=== PATIENT | female | born 1985 | race Caucasian/White ===

== ENCOUNTER 2016-05-14 19:43 | Emergency (ER) | payer MEDICAID, OTHER ==
[~2016-05-14] VITALS: Ht 154.9 cm; Wt 79.5 kg
[2016-05-14] MEDS ORDERED: LIDOCAINE HCL/PF 1% 2 ML VIAL IM ONE (20:15)
[2016-05-14] MEDS ORDERED: DEXAMETHASONE SOD PHOS 4 MG/ML VIAL IVP ONE (20:15)
[2016-05-14] MEDS ORDERED: CefTRIAXone SODIUM 1 GM/VIAL IM ONE (20:15)
[2016-05-14] MEDS ORDERED: HYDROCODONE/ACETAMINOPHEN 5-325 MG TABLET PO ONE (20:15)
[2016-05-14] MEDS ORDERED: DEXAMETHASONE SOD PHOS 4 MG/ML VIAL IM ONE (20:45)
[2016-05-14 22:02] VITALS: BP 139/84
== END 2016-05-14 22:03 | disposition home or self-care (01) ==
LOC: EMS 19:45
DX: T78.49XA Other allergy, initial encounter (principal); L03.113 Cellulitis of right upper limb; Z87.442 Personal history of urinary calculi; X58.XXXA Exposure to other specified factors, initial encounter; Y93.89 Activity, other specified; Y99.8 Other external cause status; Y92.89 Other specified places as the place of occurrence of the external cause
CPT/HCPCS: 96372; 99284; J0696; J1100; J3490

== ENCOUNTER 2016-06-16 19:25 | Emergency (ER) | payer OTHER ==
[~2016-06-16] VITALS: Ht 154.9 cm; Wt 73.6 kg
[2016-06-16] MEDS ORDERED: PROPARACAINE HCL 0.5% 15 ML OPHTHALMIC SOLUTION OU ONE (22:30)
[2016-06-16 23:03] VITALS: BP 128/86
[2016-06-16] MEDS ORDERED: PredniSONE 20 MG TABLET PO ONE (23:15)
[2016-06-16] MEDS ORDERED: DiphenhydrAMINE HCL 25 MG CAPSULE PO ONE (23:15)
== END 2016-06-16 23:28 | disposition home or self-care (01) ==
LOC: EMS 19:27
DX: L50.9 Urticaria, unspecified (principal)
CPT/HCPCS: 99284; J7512

== ENCOUNTER 2016-11-17 14:53 | Emergency (ER) | payer OTHER ==
[~2016-11-17] VITALS: Ht 157.5 cm; Wt 71.8 kg
[2016-11-17 16:38] VITALS: BP 130/74
[2016-11-17] MEDS ORDERED: DiphenhydrAMINE HCL 25 MG CAPSULE PO ONE (17:45)
== END 2016-11-17 17:58 | disposition home or self-care (01) ==
LOC: EMS 14:54
DX: L30.8 Other specified dermatitis (principal)
CPT/HCPCS: 99283

== ENCOUNTER 2017-03-16 15:30 | Emergency (ER) | payer OTHER ==
[~2017-03-16] VITALS: Ht 157.5 cm; Wt 71.8 kg
[2017-03-16 20:18] VITALS: BP 125/73
== END 2017-03-16 20:53 | disposition home or self-care (01) ==
LOC: EMS 15:35
DX: H01.003 Unspecified blepharitis right eye, unspecified eyelid (principal); Z87.442 Personal history of urinary calculi
CPT/HCPCS: 99283

== ENCOUNTER 2017-10-19 09:52 | Inpatient (IN) | payer OTHER ==
[~2017-10-19] VITALS: Ht 157.5 cm; Wt 75.0 kg
[2017-10-19 10:59] LABS: BASOPHILS % (AUTO) 0.9 % (0.0-2.0); EOSINOPHILS % (AUTO) 4.9 % (1.0-6.0); HEMOGLOBIN 11.7 g/dL (12.0-16.0); LYMPHOCYTES % (AUTO) 27.5 % (22.0-44.0); MEAN CORPUSCULAR HEMOGLOBIN 27.7 pg (26.0-34.0); MEAN CORPUSCULAR HGB CONC 33.3 G/dL (31.0-37.0); MEAN CORPUSCULAR VOLUME 83 fL (80-100); MONOCYTES # (AUTO) 0.4 K/uL (0.1-1.0); NEUTROPHILS # (AUTO) 4.6 K/uL (1.8-7.7); NEUTROPHILS % (AUTO) 61.7 % (40.0-70.0); PLATELET COUNT (AUTO) 249 K/uL (150-450); RED CELL DISTRIBUTION WIDTH 14.4 % (11.5-14.5)
[2017-10-19] MEDS ORDERED: METHYLERGONOVINE MALEATE 0.2 MG/ML VIAL IM ONE (14:45)
[2017-10-19] MEDS ORDERED: OxyCODONE HCL/ACETAMINOPHEN 5-325 MG TABLET PO ONE (15:30)
[2017-10-19] MEDS ORDERED: IBUPROFEN 800 MG TABLET PO ONE (15:30)
[2017-10-19] MEDS ORDERED: RINGERS SOLUTION,LACTATED 0 ML IV ONE (15:55)
[2017-10-19 16:10] LABS: APPEARANCE,URINE CLEAR (CLEAR); BILIRUBIN,URINE NEGATIVE (NEGATIVE); GLUCOSE, URINE (UA) NEGATIVE (NEGATIVE); KETONES,URINE 15 mg/dL (NEGATIVE); LEUKOCYTE ESTERASE ,URINE NEGATIVE (NEGATIVE); NITRATE,URINE NEGATIVE (NEGATIVE); OCCULT BLOOD,URINE MODERATE (NEGATIVE); PH,URINE 6.5 (5.0-8.0); PROTEIN,URINE NEGATIVE (NEGATIVE)
[2017-10-19] MEDS ORDERED: DOXYCYCLINE HYCLATE 100 MG in DEXTROSE 5%-WATER 100 ML IV ONE (16:15)
[2017-10-19 16:36] LABS: BACTERIA,URINE Rare /HPF (None Seen); SQUAMOUS EPITHELIAL CELL,UR Few /LPF (None Seen); WBC,URINE 0-2 /HPF (0-5)
[2017-10-19 17:30] VITALS: BP 116/71
[2017-10-19] MEDS ORDERED: IBUP-2071 PO (19:27)
[2017-10-19] MEDS ORDERED: ACET1TAB12 PO (19:28)
[2017-10-19 20:12] VITALS: BP 100/70
[2017-10-19] MEDS ORDERED: MIDAZOLAM HCL 2 MG/2 ML VIAL IVP ONE (20:59)
[2017-10-19] MEDS ORDERED: DEXAMETHASONE SOD PHOS 4 MG/ML VIAL IVP ONE (20:59)
[2017-10-19] MEDS ORDERED: PROPOFOL 1% 20 ML VIAL IVP ONE (20:59)
[2017-10-19] MEDS ORDERED: ONDANSETRON HCL 4 MG/2 ML VIAL IVP ONE (20:59)
[2017-10-19] MEDS ORDERED: FentaNYL CITRATE-PF 100 MCG/2 ML VIAL IVP ONE (20:59)
[2017-10-19] MEDS ORDERED: LIDOCAINE HCL/PF 2% 5 ML VIAL IM ONE (20:59)
== END 2017-10-19 21:00 | disposition home or self-care (01) | DRG 544 ==
LOC: EMS 09:52 → 4E 16:26
PROVIDERS: ADMIT Obstetrics & Gynecology; ATTEND Obstetrics & Gynecology
PROC: 10D17ZZ Extraction of Products of Conception, Retained, Via Natural or Artificial Opening (ICD-10-PCS; principal; 2017-10-19 15:30)
DX: O03.4 Incomplete spontaneous abortion without complication (principal); Z87.442 Personal history of urinary calculi
CPT/HCPCS: 76856; 86850; 86900; 86901; 87081; 88305; 99285; J1100; J2210; J2250; J2405; J2704; J3010; J3490; J7060; J7120

== ENCOUNTER 2018-03-20 20:09 | Emergency (ER) | payer OTHER ==
[~2018-03-20] VITALS: Ht 157.5 cm; Wt 75.9 kg
[~2018-03-20 20:09] MED LIST: ACET1TAB12 PO; IBUP-2071 PO
[2018-03-20 21:58] LABS: INFLUENZA TYPE A POSITIVE FOR TYPE A (NEGATIVE); INFLUENZA TYPE B NEGATIVE FOR TYPE B (NEGATIVE)
[2018-03-20 22:26] VITALS: BP 100/83
== END 2018-03-20 22:54 | disposition home or self-care (01) ==
LOC: EMS 20:10
DX: J11.1 Influenza due to unidentified influenza virus with other respiratory manifestations (principal)
CPT/HCPCS: 87804

== ENCOUNTER 2018-07-06 10:46 | Emergency (ER) | payer OTHER ==
[~2018-07-06] VITALS: Ht 154.9 cm; Wt 76.4 kg
[2018-07-06] MEDS ORDERED: ACETAMINOPHEN 500 MG TABLET PO ONE (11:45)
[2018-07-06] MEDS ORDERED: BENZOCAINE/MENTHOL LOZENGE PO ONE (12:30)
[2018-07-06 12:36] VITALS: BP 119/78
== END 2018-07-06 13:20 | disposition home or self-care (01) ==
LOC: EMS 10:46
DX: J03.90 Acute tonsillitis, unspecified (principal)

== ENCOUNTER 2019-12-29 19:29 | Emergency (ER) | payer OTHER ==
[~2019-12-29] VITALS: Ht 157.5 cm; Wt 68.2 kg
[2019-12-29] MEDS ORDERED: DEXAMETHASONE 4 MG TABLET PO ONE (20:00)
[2019-12-29 20:33] LABS: COVID AG,FIA SOURCE NASAL SWAB
[2019-12-29 20:54] LABS: RAPID GROUP A STREP NEGATIVE (NEGATIVE)
[2019-12-29 21:21] LABS: INFLUENZA TYPE A NEGATIVE FOR TYPE A (NEGATIVE); INFLUENZA TYPE B NEGATIVE FOR TYPE B (NEGATIVE)
[2019-12-29 21:36] VITALS: BP 143/93
== END 2019-12-29 21:48 | disposition home or self-care (01) ==
LOC: EMS 19:32
DX: B34.9 Viral infection, unspecified (principal); M79.10 Myalgia, unspecified site; J02.9 Acute pharyngitis, unspecified; Z20.828 Contact with and (suspected) exposure to other viral communicable diseases
CPT/HCPCS: 81025; 87426; 87430; 87804; 99283; J8540

== ENCOUNTER → 2021-03-01 | Emergency (ER) | payer OTHER ==
[~2021-03-01] VITALS: Ht 157.5 cm; Wt 69.0 kg
[~2021-03-01] MED LIST changes: -ACET1TAB12 PO; +ACETAMINOPHEN 500 MG TABLET PO ONE; -IBUP-2071 PO
[2021-03-01 14:41] LABS: COVID AG,FIA SOURCE NASOPHARYNGEAL
[2021-03-01 15:39] LABS: INFLUENZA TYPE A NEGATIVE FOR TYPE A (NEGATIVE); INFLUENZA TYPE B NEGATIVE FOR TYPE B (NEGATIVE)
[2021-03-01 15:55] VITALS: BP 112/59
== END | disposition home or self-care (01) ==
LOC: EMS 12:56
DX: B34.9 Viral infection, unspecified (principal); Z20.822 Contact with and (suspected) exposure to COVID-19
CPT/HCPCS: 87426; 87804; 99283; U0003

== ENCOUNTER 2022-02-07 17:31 | Emergency (ER) | payer OTHER ==
[~2022-02-07] VITALS: Ht 154.9 cm; Wt 68.2 kg
[2022-02-07 19:02] LABS: COVID AG,FIA SOURCE NASOPHARYNGEAL
[2022-02-07 19:29] LABS: INFLUENZA TYPE A NEGATIVE FOR TYPE A (NEGATIVE); INFLUENZA TYPE B NEGATIVE FOR TYPE B (NEGATIVE)
[2022-02-07] MEDS ORDERED: IBUPROFEN 600 MG TABLET PO ONE (21:15)
[2022-02-07] MEDS ORDERED: ONDANSETRON HCL 4 MG TABLET PO ONE (21:15)
[2022-02-07 22:47] VITALS: BP 122/80
[2022-02-07] MEDS ORDERED: ONDA-104 PO (23:13)
== END 2022-02-07 23:32 | disposition home or self-care (01) ==
LOC: EMS 17:37
DX: B34.9 Viral infection, unspecified (principal); Z20.822 Contact with and (suspected) exposure to COVID-19
CPT/HCPCS: 99283; 87426; 87430; 87804; Q0162

== ENCOUNTER 2024-02-13 08:12 | Emergency (ER) | payer OTHER ==
[~2024-02-13] VITALS: Ht 154.9 cm; Wt 66.8 kg
[~2024-02-13 08:12] MED LIST changes: -ACETAMINOPHEN 500 MG TABLET PO ONE; +ONDA-104 PO
[2024-02-13 08:16] VITALS: TEMP 98.8
[2024-02-13] MEDS ORDERED: CYCL-448 PO (10:12)
[2024-02-13] MEDS ORDERED: IBUP-1492 PO (10:12)
[2024-02-13] MEDS: IBUPROFEN 600 MG TABLET PO ONE (10:20)
[2024-02-13] MEDS: LIDOCAINE 5% TRANSDERMAL PATCH TD ONE (10:20)
[2024-02-13 11:00] VITALS: BP 124/87; PULSE 85; RESP 18; O2SAT 99
== END 2024-02-13 11:47 | disposition home or self-care (01) ==
LOC: EMS 08:12
DX: M54.50 Low back pain, unspecified (principal); M41.9 Scoliosis, unspecified; Z87.442 Personal history of urinary calculi; Z98.890 Other specified postprocedural states
CPT/HCPCS: 99283

== ENCOUNTER 2024-06-10 16:20 | Emergency (ER) | payer OTHER ==
[~2024-06-10] VITALS: Ht 154.9 cm; Wt 67.0 kg
[~2024-06-10 16:20] MED LIST changes: +CYCL-448 PO; +IBUP-1492 PO
[2024-06-10 16:31] VITALS: TEMP 98.7
[2024-06-10 17:01] LABS: APPEARANCE,URINE HAZY (CLEAR); BILIRUBIN,URINE NEGATIVE (NEGATIVE); COLOR,URINE YELLOW (YELLOW); GLUCOSE, URINE (UA) NEGATIVE (NEGATIVE); KETONES,URINE NEGATIVE (NEGATIVE); LEUKOCYTE ESTERASE ,URINE MODERATE (NEGATIVE); NITRATE,URINE NEGATIVE (NEGATIVE); OCCULT BLOOD,URINE NEGATIVE (NEGATIVE); PH,URINE 6.5 (5.0-8.0); PROTEIN,URINE TRACE mg/dL (NEGATIVE); SPECIFIC GRAVITIY, URINE 1.024 (1.003-1.030)
[2024-06-10 17:16] LABS: BACTERIA,URINE Few /HPF (None Seen); RBC,URINE None Seen /HPF (0-2); SQUAMOUS EPITHELIAL CELL,UR Moderate /LPF (None Seen)
[2024-06-10] MEDS: SODIUM CHLORIDE 0.9% 1,000 ML IV ONE (17:33)
[2024-06-10] MEDS: KETOROLAC TROMETHAMINE 30 MG/ML VIAL IVP ONE (17:34)
[2024-06-10] MEDS: METOCLOPRAMIDE HCL 5 MG/ML 2 ML VIAL IVP ONE (17:34)
[2024-06-10 17:40] LABS: EOSINOPHILS % (AUTO) 2.6 % (1.0-6.0); HEMATOCRIT 38.8 % (36-46); HEMOGLOBIN 12.5 g/dL (12.0-16.0); LYMPHOCYTES # (AUTO) 0.8 K/uL (1.0-4.8); LYMPHOCYTES % (AUTO) 16.2 % (22.0-44.0); MEAN CORPUSCULAR HEMOGLOBIN 28.1 pg (26.0-34.0); MEAN CORPUSCULAR HGB CONC 32.3 G/dL (31.0-37.0); MEAN CORPUSCULAR VOLUME 87 fL (80-100); MONOCYTES # (AUTO) 0.4 K/uL (0.1-1.0); MONOCYTES % (AUTO) 7.7 % (2.0-9.0); NEUTROPHILS # (AUTO) 3.6 K/uL (1.8-7.7); NEUTROPHILS % (AUTO) 72.5 % (40.0-70.0); PLATELET COUNT (AUTO) 221 K/uL (150-450); RED BLOOD CELL COUNT(AUTO) 4.46 MIL/uL (4.00-5.20); RED CELL DISTRIBUTION WIDTH 14.9 % (11.5-14.5); WHITE BLOOD COUNT (AUTO) 4.9 K/uL (4.5-11.0)
[2024-06-10 17:47] LABS: ANION GAP 8 mmol/L (8-16); CALCIUM, TOTAL 9.1 mg/dL (8.8-10.5); CARBON DIOXIDE 28 mmol/L (22-29); CHLORIDE 104 mmol/L (98-107); CREATININE 0.64 mg/dL (0.60-1.30); GLOMERULAR FILTR. RATE CALC > 60 mL/min (>60); GLUCOSE,RANDOM 88 mg/dL (70-110); POTASSIUM 3.7 mmol/L (3.5-5.1); SODIUM SERUM 140 mmol/L (136-145); UREA NITROGEN, BLOOD 15 mg/dL (7-18)
[2024-06-10] MEDS: CefTRIAXone 1 GM/DEXTROSE 50 ML IV ONE (18:31)
[2024-06-10] MEDS ORDERED: CEPH-558 PO (20:51)
[2024-06-10 21:00] VITALS: BP 117/71; PULSE 80; RESP 16; O2SAT 100
== END 2024-06-10 21:10 | disposition home or self-care (01) ==
LOC: EMS 16:21
DX: N39.0 Urinary tract infection, site not specified (principal); N83.201 Unspecified ovarian cyst, right side; N83.202 Unspecified ovarian cyst, left side; F12.90 Cannabis use, unspecified, uncomplicated; Z87.442 Personal history of urinary calculi; Z90.49 Acquired absence of other specified parts of digestive tract
CPT/HCPCS: 99285; 74176; 96365; 76856; 96375; 96361; 80048; 81001; 84703; 85025; 87040; 87086; 87205; 36415; J1885; J0696; J2765; J7030